=== PATIENT | male | born 1990 | race Caucasian/White ===

== ENCOUNTER 2016-10-13 12:19 | Emergency (ER) | payer OTHER ==
[~2016-10-13] VITALS: Ht 175.3 cm; Wt 90.0 kg
[2016-10-13 12:20] VITALS: BP 129/78; PULSE 100; RESP 20; TEMP 98.4; O2SAT 98
[2016-10-13] MEDS ORDERED: SODIUM CHLOR 0.9% 1000 ML INJ 1,000 ML IV SCH (13:23)
[2016-10-13 13:25] VITALS: O2SAT 100
--- NOTE | 2016-10-13 13:27 | PD ---
HPI Chief Complaint: Abdominal Pain Time Seen by Provider: 13:15 Travel History International Travel<30 days: No Contact w/Intl Traveler<30days: No Traveled to known affect area: No History of Present Illness HPI 26-year-old male here for evaluation of abdominal pain. Patient began having pain in his lower abdomen yesterday evening. He reports that the pain started on his right lower abdomen, is now over his left lower abdomen, is 7 out of 10, sharp/cramping, worse with movement and palpation. She denies history of abdominal surgeries. No urinary symptoms. No fevers or chills. No nausea or vomiting. Last bowel movement was yesterday and was normal. [facility] Past Medical History Medical History: Denies Significant Hx Influenza Vaccination: Yes Past Surgical History Surgical History: No Previous Surgery Social History Alcohol Use: Yes Tobacco Use: Yes (1/2ppd) Substance Use: No Allergies-Medications (Allergen,Severity, Reaction): Coded Allergies: Penicillin (Verified Allergy, Unknown, 10/13/16) Reported Meds & Prescriptions Reported Meds & Active Scripts Active No Active Prescriptions or Reported Medications Review of Systems Except as stated in HPI: all other systems reviewed are Neg Physical Exam Narrative GENERAL: Well-developed, well-nourished, comfortable, no acute distress. SKIN: Focused skin assessment warm/dry. No rash. HEAD: Atraumatic. Normocephalic. EYES: Pupils equal and round. No scleral icterus. No injection or drainage. ENT: Mucous membranes pink and moist. CARDIOVASCULAR: Regular rate and rhythm. RESPIRATORY: No accessory muscle use. Clear to auscultation. Breath sounds equal bilaterally. GASTROINTESTINAL: Abdomen soft, nondistended. Moderate right lower quadrant and left lower quadrant tenderness as well as suprapubic tenderness without peritoneal signs. Rest of abdomen is soft and nontender. No hernias. Normal bowel sounds. MUSCULOSKELETAL: No obvious deformities. No clubbing. No cyanosis. No edema. NEUROLOGICAL: Awake and alert. No obvious cranial nerve deficits. Motor grossly within normal limits. Normal speech. PSYCHIATRIC: Appropriate mood and affect; insight and judgment normal. Data Data Last Documented VS Vital Signs Date Time Temp Pulse Resp B/P Pulse Ox O2 Delivery O2 Flow Rate FiO2 10/13/16 13:25 100 Room Air 10/13/16 12:20 98.4 100 20 129/78 Orders Complete Blood Count With Diff (10/13/16 13:23) Comprehensive Metabolic Panel (10/13/16 13:23) Lipase (10/13/16 13:23) Prothrombin Time / Inr (Pt) (10/13/16 13:23) Act Partial Throm Time (Ptt) (10/13/16 13:23) Urinalysis - C+S If Indicated (10/13/16 13:23) Ct Abd/Pel W Iv Contrast(Rout) (10/13/16 13:23) Iv Access Insert/Monitor (10/13/16 13:23) Ecg Monitoring (10/13/16 13:23) Oximetry (10/13/16 13:23) Morphine Inj (Morphine Inj) (10/13/16 13:30) Ondansetron Inj (Zofran Inj) (10/13/16 13:30) Sodium Chlor 0.9% 1000 Ml Inj (Ns 1000 M (10/13/16 13:23) Sodium Chloride 0.9% Flush (Ns Flush) (10/13/16 13:30) Iohexol 350 Inj (Omnipaque 350 Inj) (10/13/16 13:59) Dicyclomine Inj (Bentyl Inj) (10/13/16 15:00) Labs Laboratory Tests Test 10/13/16 10/13/16 13:32 14:50 White Blood Count 9.5 TH/MM3 Red Blood Count 5.35 MIL/MM3 Hemoglobin 16.6 GM/DL Hematocrit 46.6 % Mean Corpuscular Volume 87.1 FL Mean Corpuscular Hemoglobin 31.1 PG Mean Corpuscular Hemoglobin 35.7 % Concent Red Cell Distribution Width 13.4 % Platelet Count 161 TH/MM3 Mean Platelet Volume 9.8 FL Neutrophils (%) (Auto) 70.0 % Lymphocytes (%) (Auto) 16.5 % Monocytes (%) (Auto) 11.9 % Eosinophils (%) (Auto) 1.1 % Basophils (%) (Auto) 0.5 % Neutrophils # (Auto) 6.6 TH/MM3 Lymphocytes # (Auto) 1.6 TH/MM3 Monocytes # (Auto) 1.1 TH/MM3 Eosinophils # (Auto) 0.1 TH/MM3 Basophils # (Auto) 0.0 TH/MM3 CBC Comment DIFF FINAL Differential Comment Prothrombin Time 10.9 SEC Prothromb Time International 1.0 RATIO Ratio Activated Partial 29.4 SEC Thromboplast Time Sodium Level 140 MEQ/L Potassium Level 3.9 MEQ/L Chloride Level 106 MEQ/L Carbon Dioxide Level 25.2 MEQ/L Anion Gap 9 MEQ/L Blood Urea Nitrogen 5 MG/DL Creatinine 1.11 MG/DL Estimat Glomerular Filtration 79 ML/MIN Rate Random Glucose 72 MG/DL Calcium Level 9.7 MG/DL Total Bilirubin 0.4 MG/DL Aspartate Amino Transf 47 U/L (AST/SGOT) Alanine Aminotransferase 128 U/L (ALT/SGPT) Alkaline Phosphatase 59 U/L Total Protein 8.0 GM/DL Albumin 4.4 GM/DL Lipase 105 U/L Urine Color LIGHT-YELLOW Urine Turbidity CLEAR Urine pH 6.0 Urine Specific [place] 1.025 Urine Protein NEG mg/dL Urine Glucose (UA) NEG mg/dL Urine Ketones NEG mg/dL Urine Occult Blood NEG Urine Nitrite NEG Urine Bilirubin NEG Urine Urobilinogen LESS THAN 2.0 MG/DL Urine Leukocyte Esterase NEG Urine RBC LESS THAN 1 /hpf Urine WBC LESS THAN 1 /hpf Microscopic Urinalysis Comment CULT NOT INDICATED MDM Medical Decision Making Medical Screen Exam Complete: Yes Emergency Medical Condition: Yes Differential Diagnosis Appendicitis, colitis, cystitis, UTI Narrative Course Vital signs reviewed. CBC is unremarkable. CMP is remarkable for AST 47, ALT 128, otherwise unremarkable. Lipase is 105. UA is unremarkable. CT abdomen pelvis: CONCLUSION: 1. Nonspecific bowel gas pattern which may represent an ileus or gastroenteritis. 2. Mild to moderate hepatic steatosis. Patient was made aware of all findings. He is resting comfortably. He is tolerating Gatorade without difficulty. He is stable for discharge home with outpatient follow-up with a primary care physician this week. I will also give him the name of the propeller tester with whom to follow-up with this week. He was informed on when to return to the emergency department. He verbalizes understanding and agreement with plan. Diagnosis Primary Impression: Abdominal pain Qualified Code: R10.30 - Lower abdominal pain Additional Impression: Hepatic steatosis Referrals: Lion Mejia MD 1 week Sanitation Lead Primary Care Physician 3 days Additional Instructions: Follow-up with a primary care physician this week. Follow-up with propeller tester Dr. Mejia or a propeller tester of your choice this week. Return to the emergency department for worsening symptoms or any other concerns. Scripts Dicyclomine (Bentyl)20 Mg Tab20 Mg PO TID #15 TAB Ref 0 Prov:Jaya Morales MD 10/13/16 Disposition: 01 DISCHARGE HOME Condition: Stable Jaya Morales MD Oct 13, 2016 13:27
[2016-10-13] MEDS ORDERED: MORPHINE SULFATE 4 MG/ML INJ IV PUSH ONE (13:30)
[2016-10-13] MEDS ORDERED: ONDANSETRON HCL 4 MG/2 ML VIAL IVP ONE (13:30)
[2016-10-13] MEDS ORDERED: SODIUM CHLORIDE 0.9% FLUSH 10 ML FLUSH IV FLUSH PRN (13:30)
[2016-10-13] MEDS ORDERED: IOHEXOL 350 MG/ML 10 ML VIAL (for RAD DIAG) IV ONE (13:59)
[2016-10-13 14:01] LABS: AUTOMATED NEUTROPHIL # 6.6 TH/MM3 (1.8-7.7); BASOPHIL % 0.5 % (0.0-2.0); EOSINOPHIL # 0.1 TH/MM3 (0-0.4); EOSINOPHIL % 1.1 % (0.0-4.0); HEMATOCRIT 46.6 % (39.0-51.0); HEMO FLAGS DIFF FINAL; LYMPH % 16.5 % (9.0-44.0); LYMPHOCYTE # 1.6 TH/MM3 (1.0-4.8); MEAN CELL VOLUME 87.1 FL (80.0-100.0); MEAN CORPUSCULAR HEMOGLOBIN 31.1 PG (27.0-34.0); MEAN CORPUSCULAR HGB CONC 35.7 % (32.0-36.0); MONO % 11.9 % (0.0-8.0); PLATELET COUNT 161 TH/MM3 (150-450); RED BLOOD COUNT 5.35 MIL/MM3 (4.50-5.90); RED CELL DISTRIBUTION WIDTH 13.4 % (11.6-17.2); WHITE BLOOD COUNT 9.5 TH/MM3 (4.0-11.0)
[2016-10-13 14:06] LABS: APTT (PATIENT) 29.4 SEC (24.3-30.1); PROTHROMBIN TIME - PATIENT 10.9 SEC (9.8-11.6)
[2016-10-13 14:18] LABS: ALT (GPT) 128 U/L (12-78); ANION GAP 9 MEQ/L (5-15); AST (GOT) 47 U/L (15-37); BICARBONATE 25.2 MEQ/L (21.0-32.0); BLOOD UREA NITROGEN 5 MG/DL (7-18); CHLORIDE 106 MEQ/L (98-107); GLOMERULAR FILTRATION RATE 79 ML/MIN (>89); POTASSIUM 3.9 MEQ/L (3.5-5.1); SODIUM (NA) 140 MEQ/L (136-145)
[2016-10-13 14:20] LABS: ALKALINE PHOSPHATASE 59 U/L (45-117); TOTAL BILIRUBIN ADULT 0.4 MG/DL (0.2-1.0)
--- NOTE | 2016-10-13 14:38 | RADRPT ---
EXAM DATE/TIME: 10/13/2016 13:58 [facility] COMPARISON: No previous studies available for comparison. INDICATIONS : Lower abdominal pain since yesterday. IV CONTRAST: 100 cc Omnipaque 350 (iohexol) IV ORAL CONTRAST: No oral contrast ingested. RADIATION DOSE: 9.96 CTDIvol (mGy) MEDICAL HISTORY : None SURGICAL HISTORY : None. ENCOUNTER: Initial ACUITY: 1 day PAIN SCALE: 4/10 LOCATION: Bilateral pelvis TECHNIQUE: Volumetric scanning of the abdomen and pelvis was performed. Using automated exposure control and ad justment of the mA and/or kV according to patient size, radiation dose was kept as low as reasonably achievable to obtain optimal diagnostic quality images. FINDINGS: LOWER LUNGS: The visualized lower lungs are clear. LIVER: Homogeneous density without lesion. There is no dilation of the biliary tree. No calcified gallston es. There is mild to moderate hepatic steatosis. SPLEEN: Normal size without lesion. PANCREAS: Within normal limits. KIDNEYS: Normal in size and shape. There is no mass, stone or hydronephrosis. ADRENAL GLANDS: Within normal limits. VASCULAR: There is no aortic aneurysm. BOWEL/MESENTERY: There is a nonspecific, nonobstructive out gas pattern with multiple loops nondilated air-containing small bowel. Multiple small air-fluid levels. There is a normal appendix. There is gas and stool note d statement: No free air or fluid. ABDOMINAL WALL: Within normal limits. RETROPERITONEUM: There is no lymphadenopathy. BLADDER: No wall thickening or mass. REPRODUCTIVE: Within normal limits. INGUINAL: There is no lymphadenopathy or hernia. MUSCULOSKELETAL: Within normal limits for patient age. CONCLUSION: 1. Nonspecific bowel gas pattern which may represent an ileus or gastroenteritis. 2. Mild to moderate hepatic steatosis. Keron Reyna MD on October 13, 2016 at 14:23 Board Certified Radiologist. This report was verified electronically.
[2016-10-13] MEDS ORDERED: DICYCLOMINE HCL 20 MG/2 ML VIAL IM ONE (15:00)
[2016-10-13 15:03] LABS: BLOOD, URINE NEG (NEG); GLUCOSE,URINE NEG (NEG); KETONE, URINE NEG (NEG); NITRITE,URINE NEG (NEG); URINE COLOR LIGHT-YELLOW (YELLW/STRAW)
[2016-10-13 15:11] LABS: COMMENT (UR) CULT NOT INDICATED; CULTURE IF INDICATED CULT NOT INDICATED
[2016-10-13] MEDS ORDERED: BENT20TA PO (15:47)
== END 2016-10-13 15:55 | disposition home or self-care (01) ==
LOC: NEPD 12:19
DX: R10.30 Lower abdominal pain, unspecified (principal); K76.0 Fatty (change of) liver, not elsewhere classified
CPT/HCPCS: 74177; 80053; 81001; 83690; 85025; 85610; 85730; 96361; 96372; 96374; 96375; 99284; J0500; J2270; J2405; J7030; Q9967